=== PATIENT | female | born 1955 | race African-American/Black ===

== ENCOUNTER → 2020-02-05 | Outpatient (CLI) | payer OTHER | END | disposition home or self-care (01) | LOC: CATH 14:06 → EDSTATUS 02-09 07:03 | PROVIDERS: ATTEND Internal Medicine | DX: Z01.818 Encounter for other preprocedural examination (principal); I25.10 Atherosclerotic heart disease of native coronary artery without angina pectoris; Z20.828 Contact with and (suspected) exposure to other viral communicable diseases; Z79.899 Other long term (current) drug therapy ==

== ENCOUNTER 2020-05-24 07:27 | Day surgery (SDC) | payer OTHER ==
[~2020-05-24] VITALS: Ht 160 cm; Wt 90.0 kg
[~2020-05-24 07:27] MED LIST: ASPI-543 PO; ATO40T PO; CLOP75TA28 PO; FAMO-12 PO; IBUP800T27 PO; LISI-275 PO; METH750T3 PO; METO25TA5 PO; PRAV20TA3 PO; RANO500T2 PO
[2020-05-24] MEDS ORDERED: IODIXANOL 320MG/ML 100ML BTL IV ONE (08:29)
[2020-05-24] MEDS ORDERED: LIDOCAINE 2%HCL (LOCAL ANESTH.) INJ 20ML MDV ONE (08:30)
[2020-05-24] MEDS ORDERED: methylPREDNISolone SOD SUCC 125 MG/2 ML VL ONE (08:44)
[2020-05-24] MEDS ORDERED: ANGIOMAX 250 MG VIAL IV ONE (08:44)
[2020-05-24] MEDS ORDERED: HEPARIN SODIUM (PORCINE) 5000 UNITS/ML 1ML VIAL ONE (08:44)
[2020-05-24] MEDS ORDERED: VERAPAMIL 2.5MG/ML INJ 2ML VIAL IV ONE (08:45)
[2020-05-24] MEDS ORDERED: FAMOTIDINE (10MG/ML) 2ML VL IV ONE (08:45)
[2020-05-24] MEDS ORDERED: SODIUM CHL 0.9% 0 ML ONE (08:45)
[2020-05-24] MEDS ORDERED: diphenhdrAMINE HCL 50 MG/1 ML VL ONE (08:45)
[2020-05-24] MEDS ORDERED: fentaNYL CITRATE 100 MCG/2 ML VL ONE (08:55)
[2020-05-24] MEDS ORDERED: MIDAZOLAM HCL 1MG/1ML-2 ML VIAL ONE (08:56)
[2020-05-24] MEDS ORDERED: ACETAMINOPHEN 500 MG TAB PO PRN (09:45)
[2020-05-24] MEDS ORDERED: HYDROcodone-ACET 5/325MG TAB PO PRN (09:45)
== END 2020-05-24 13:14 | disposition home or self-care (01) ==
LOC: CATH 07:27
PROVIDERS: ATTEND Internal Medicine
DX: R94.39 Abnormal result of other cardiovascular function study (principal); I25.118 Atherosclerotic heart disease of native coronary artery with other forms of angina pectoris; I10 Essential (primary) hypertension; E78.5 Hyperlipidemia, unspecified; F17.200 Nicotine dependence, unspecified, uncomplicated; E66.01 Morbid (severe) obesity due to excess calories; Z68.35 Body mass index [BMI] 35.0-35.9, adult; Z20.822 Contact with and (suspected) exposure to COVID-19; Z98.890 Other specified postprocedural states; Z79.899 Other long term (current) drug therapy; Z91.041 Radiographic dye allergy status
CPT/HCPCS: 93454; C1887; C1894; J1200; J1644; J2250; J2930; J3010; J3490; Q9967; U0003; 99152